=== PATIENT | male | born 1980 | race Caucasian/White ===

== ENCOUNTER → 2024-01-07 13:27 | Outpatient (REF) | payer OTHER, SELFPAY | LOC: RCS 13:27 | PROVIDERS: ATTENDING PHYSICIAN Internal Medicine Interventional Cardiology; FAMILY PHYSICIAN Family Medicine | DX: I10 Essential (primary) hypertension (principal); R07.89 Other chest pain | CPT/HCPCS: 93017 ==

== ENCOUNTER → 2024-02-04 07:44 | Outpatient (REF) | payer OTHER, SELFPAY | LOC: RCS 07:44 | PROVIDERS: ATTENDING PHYSICIAN Internal Medicine Interventional Cardiology; FAMILY PHYSICIAN Family Medicine | DX: I10 Essential (primary) hypertension (principal); R07.89 Other chest pain | CPT/HCPCS: 93306 ==

== ENCOUNTER 2025-04-05 16:19 | Emergency (ER) | payer OTHER, SELFPAY ==
[2025-04-05 16:31] VITALS: BP 116/73
[2025-04-05 16:54] LABS: Hematocrit 42.7 % (39.0-52.0); Hemoglobin 14.6 g/dL (13.0-18.0); Mean Corp Hgb Conc. 34.2 g/dL (33.0-37.0); Mean Corpuscular Volume 93.6 fL (80.0-94.0); Nucleated Red Blood Cells % 0 % (-); Platelet Count 223 10^3/uL (130-400); Red Cell Dist. Width 12.1 % (11.5-14.5)
[2025-04-05 17:04] LABS: INR 0.94; PT 12.9 Sec (11.4-14.6)
[2025-04-05 17:05] LABS: APTT 27.8 Sec (23.4-35.0)
[2025-04-05 17:15] LABS: ALT (SGPT) 15 U/L (0-50); AST (SGOT) 21 U/L (17-59); Albumin 4.7 g/dl (3.5-5.0); Alkaline Phosphatase 68 U/L (38-126); Blood Urea Nitrogen 18 mg/dl (9-20); Calcium 9.1 mg/dl (8.4-10.2); Carbon Dioxide 23 mmol/L (22-30); Chloride 111 mmol/L (98-107); Glucose 95 mg/dl (70-99); Potassium 4.8 mmol/L (3.5-5.1); Sodium 141 mmol/L (135-145); Total Protein 7.1 g/dl (6.3-8.2); eGFR > 60.00
--- NOTE | 2025-04-05 20:27 | ED.GENMED ---
History of Present Illness
General
Chief Complaint: Rectal Bleeding
Source: patient
Exam Limitations: none
Time Seen by Provider: 04/05/25 20:18
History of Present Illness
History of Present Illness:
44-year-old male started with diarrhea 3 to 4 days ago. Loose. Started noticing blood today. Some lower abdominal cramps. No travel history no recent antibiotics no fever chills vomiting or other complaints
Past History
Past History
ED Past Medical History: None
ED Past Surgical History: Tonsilectomy
Social History
Tobacco: Non-smoker
Review of Systems
Review of Systems
All Other Systems: Not applicable
Constitutional: Denies fever or chills
Respiratory: Reports no symptoms
Cardiac: Reports no symptoms
Phy Exam
Physical Exam
Physical Exam:
GENERAL: Alert and oriented in no apparent distress
EYE: Orbits normal.
NECK: Supple, no significant adenopathy.
ENT: Pharynx without erythema
CARDIAC: Regular rate and rhythm without any obvious murmurs.
LUNGS: Clear breath sounds,normal
ABDOMEN: Soft, bowel sounds present no distention. Mild diffuse lower abdominal tenderness. Rectal exam with no stool but test negative. No external hemorrhoids.
NEUROLOGICAL: Alert and oriented , grossly non-focal
SKIN: Warm and dry, no rash or lesion, no discoloration, skin intact.
MUSCULOSKELETAL: No edema,no deformity.Good color
PSYCH: Normal and appropriate interaction.
Course
Orders/Labs/Results
Orders:
Orders
04/05/25 16:32
IV Insert/Care/Rem.- Treatment PRN
04/05/25 16:43
Complete Blood Count/With Diff Urgent
Comprehensive Metabolic Panel Urgent
PTT Urgent
Prothrombin Time Urgent
04/05/25 20:26
CT Abd/Pel (IV only)-DH only Urgent
Comment:
Reason For Exam: Lower abdominal pain/rectal bleeding
IV Insert/Care/Rem.- Treatment PRN
STOOL [C difficile Antigen & Toxins] Urgent
SLICK Source: Feces/Stool
Specimen Description:
Stool Culture Urgent
SLICK Source: Feces/Stool
Specimen Description:
0.9% Sodium Chloride 500 ml [Nss] 500 ml IV BOLUS
04/05/25 23:25
Urinalysis Reflex To Culture Urgent
Date Specimen was Collected: 04/05/25
Time Specimen was Collected: 23:24
Abnormal Lab Results
04/05/25
16:43
RBC 4.56 L 10^6/uL
(4.70-6.10)
MCH 32.0 H pg
(27.0-31.0)
Absolute Monos (auto) 0.7 H 10^3/uL
(0.1-0.6)
Monocytes % 11.0 H %
(1.7-9.3)
Chloride 111 H mmol/L
(98-107)
04/05/25 16:43
04/05/25 16:43
Vital Signs
Initial and Last Documented VS:
Initial Vital Signs
Temp Pulse Resp BP Pulse Ox
98.4 F 60 19 116/73 96
04/05/25 16:31 04/05/25 16:31 04/05/25 16:31 04/05/25 16:31 04/05/25 16:31
Last Documented Vital Signs
Temp Pulse Resp BP Pulse Ox
98.4 F 60 19 110/65 96
04/05/25 16:31 04/05/25 16:31 04/05/25 16:31 04/05/25 21:00 04/05/25 21:02
MDM/Problems Addressed
Differential Diagnosis Includes:
Patient symptoms most consistent with colitis. Consider diverticulitis. Check CT scan. Stool culture.
Patient medically stable and nontoxic. Describing colitis. Bladder wall thickening is nonspecific. Urinalysis negative. Stable for discharge to follow-up with GI. Message left with GI hotel front desk agent. No indication for antibiotics at this time.
Copy of CT report given to patient
*Radiology
Radiology exam reviewed: radiology read reviewed (Bladder wall thickening. Hepatic steatosis. Mild splenomegaly. Degenerative changes.)
*Pulse Oximetry
SaO2: 96
Oxygen Mode of Delivery: Room air
Patient hypoxic: no
*Critical Care Note
Total Time (30-74mins, 75-104mins- exclusive of procedures): Not Applicable
Update Note
Update Note:
Copy of CT report given to patient. GI hotel front desk agent message left. Also recommended follow-up with urology for bladder wall thickening.
ED Attending Note
-
Portions of this chart may have been created with voice recognition software.� Occasional wrong word or��sound alike� substitutions may have occurred due to the inherent limitations of voice recognition software.
Discharge Plan
Departure
Patient Disposition: Home (Routine Discharge)
Date of Disposition: 04/05/25
Time of Disposition: 23:43
Patient with high blood pressure during this ER visit?: No
Discharge Problem:
Rectal bleeding/diarrhea, Possible colitis
Prescriptions:
No Action
No Current Medications
lansoprazole [Prevacid] 30 MG capsule,delayed release(DR/EC)
30 mg PO HS Qty: 30 0RF
Referrals:
Matias Salas MD [Active, Urology] - Next open appointment
Skip Gaming DO [Family Provider, Family Practice] - Follow up in 2-3 days
Toyin Devine DO [Active, Gastroenterology]
Activity Restrictions/Additional Instructions:
The gastrointestinal group should call you for close follow-up
I also gave you the name of a urologist you could call because of the bladder wall thickening by ultrasound
Interventions
Interventions:
*Risk Screen - Suicide Last Done: 04/05/25 16:31
*General Assessment Last Done: 04/05/25 16:31
*Neglect/Abuse Screening Last Done: 04/05/25 16:31
*ED- Fall Risk Assessment Last Done: 04/05/25 20:40
*ED COVID-19 Vaccine History Last Done: 04/05/25 20:40
GI-Qfomvv-Mmiexioqqx Assessment Last Done: 04/05/25 20:50
ED- Cardiac Assessment Last Done: 04/05/25 20:50
ED- Pulmonary Assessment Last Done: 04/05/25 20:50
Discharge Date and Time
Print Language: TELUGU
[2025-04-05] MEDS: NSS 500 IV (20:39)
[2025-04-05 21:00] VITALS: BP 110/65
[2025-04-05 23:31] LABS: Urine Character Clear (Clear)
== END 2025-04-06 00:09 | disposition home or self-care (01) ==
LOC: EMR 16:19
PROVIDERS: Emergency Medicine; EMERGENCY PHYSICIAN Emergency Medicine; FAMILY PHYSICIAN Family Medicine
DX: K62.5 Hemorrhage of anus and rectum (principal); R19.7 Diarrhea, unspecified; R10.30 Lower abdominal pain, unspecified
CPT/HCPCS: 99284; 96360; 96361; 74177; 80053; 81003; 85025; 85610; 85730; Q9967

== ENCOUNTER 2025-05-07 06:27 | Day surgery (SDC) | payer OTHER, SELFPAY | END 2025-05-07 11:47 | disposition home or self-care (01) | LOC: GI 06:27 | PROVIDERS: ATTENDING PHYSICIAN Internal Medicine Gastroenterology | DX: K62.5 Hemorrhage of anus and rectum (principal); R19.4 Change in bowel habit; K64.8 Other hemorrhoids; K21.00 Gastro-esophageal reflux disease with esophagitis, without bleeding; R12 Heartburn; K44.9 Diaphragmatic hernia without obstruction or gangrene; K29.70 Gastritis, unspecified, without bleeding; K29.00 Acute gastritis without bleeding; K22.10 Ulcer of esophagus without bleeding | CPT/HCPCS: 45380; 43239; 88305; 88342 ==